=== PATIENT | female | born 1990 ===

== ENCOUNTER 2022-10-23 09:47 | Outpatient (CLI) | payer OTHER | END 2022-10-23 09:52 | disposition home or self-care (01) | LOC: RX STUDY 09:47 | DX: N97.1 Female infertility of tubal origin (principal) ==

== ENCOUNTER 2023-10-07 07:48 | Day surgery (SDC) | payer OTHER ==
[2023-10-03 08:28] LABS: URINE APPEARANCE Clear; URINE BILIRRUBIN Negative (NEGATIVE); URINE BLOOD Trace; URINE COLOR Yellow; URINE GLUCOSE Negative (NEGATIVE); URINE LEUKOCYTE Small; URINE NITRATE Negative; URINE PROTEIN Negative (NEGATIVE)
[2023-10-03 08:32] LABS: URINE BACTERIA 1646.6 uL (0.0-1933); URINE EPITHELIAL CELLS 54.2 uL (0.0-38.8); URINE RBC 22.1 uL (0.0-20.8); URINE WBC 75.4 uL (0.0-23.2)
[2023-10-03 08:33] LABS: HEMATOCRIT 42.9 % (36.0-45.00); HEMOGLOBIN 14.5 g/dL (12.0-15.00); MEAN CELL VOLUME 87.5 fL (80.00-100.00); MEAN CORPUSCULAR HEMOGLOBIN 29.6 pg (27.00-32.0); MEAN CORPUSCULAR HGB CONC 33.9 g/dl (32.0-36.0); PLATELET COUNT 214 K/uL (150-450); RED BLOOD COUNT 4.91 M/uL (4.00-6.00); RED CELL DISTRIBUTION WIDTH 13.6 % (11.5-14.5)
[2023-10-03 08:53] LABS: INR 0.99; PARTIAL THROMBOPLASTIN TIME 30.4 SECONDS (22.0-34.0); PROTHROMBIN TIME 10.4 SECONDS (9.0-11.5)
[2023-10-03 09:06] LABS: ALBUMIN 4.1 gm/dL (3.4-5.0); BILIRUBIN TOTAL 0.51 mg/dL (0.3-1.2); CALCIUM 9.5 mg/dL (8.5-10.1); CREATININE SERUM 0.71 mg/dL (0.55-1.02); GFR 94.8; GLOBULINA 3.2 G/DL (2.4-3.5); POTASSIUM 4.5 mEq/L (3.5-5.1); TOTAL PROTEIN 7.3 gm/dL (6.4-8.2)
[~2023-10-07] VITALS: Ht 160 cm; Wt 86.4 kg
[~2023-10-07 07:48] MED LIST: CHILDREN'S ASPI81 MG PO; LASIX20 MG PO; METFORMIN HCL1000 M2 PO; NEURONTIN800 MG PO; PLAQUENIL PO; SINGULAIR10 MG PO; ZESTRIL20 MG PO; ZOCOR20 MG PO
== END 2023-10-07 22:25 | disposition home or self-care (01) ==
LOC: CIR.AMB 07:48
PROVIDERS: ATTEND Colon & Rectal Surgery
DX: K60.1 Chronic anal fissure (principal); K62.89 Other specified diseases of anus and rectum; K62.5 Hemorrhage of anus and rectum; Z91.040 Latex allergy status; Z91.013 Allergy to seafood; Z20.822 Contact with and (suspected) exposure to COVID-19